=== PATIENT | female | born 1965 | race African-American/Black ===

== ENCOUNTER 2020-03-23 12:03 | Emergency (ER) | payer OTHER, SELFPAY ==
[2020-03-24 13:47] LABS: SARS-CoV-2 MS2 Positive; SARS-CoV-2 N Gene Negative; SARS-CoV-2 S Gene Negative; SARS-CoV-2 by NAA Not Detected (NotDetected); SARS-CoV-2 orf1ab Negative
== END 2020-03-23 12:40 | disposition home or self-care (01) ==
LOC: ERS 12:03
DX: Z20.828 Contact with and (suspected) exposure to other viral communicable diseases (principal); Z79.899 Other long term (current) drug therapy
CPT/HCPCS: 87635; 99283; U0003

== ENCOUNTER 2022-12-27 09:35 | Outpatient (CLI) | payer OTHER | END 2022-12-27 09:36 | disposition home or self-care (01) | LOC: BICRAD 09:35 | PROVIDERS: ATTEND Nurse Practitioner Family | DX: M79.671 Pain in right foot (principal); M25.561 Pain in right knee; M25.562 Pain in left knee; M19.071 Primary osteoarthritis, right ankle and foot; M17.0 Bilateral primary osteoarthritis of knee; M25.461 Effusion, right knee ==

== ENCOUNTER 2023-04-09 06:43 | Emergency (ER) | payer OTHER, SELFPAY ==
[2023-04-09] MEDS ORDERED: HYDROcodone/Acetaminophen 5/325 mg Tablet ONE (07:20)
[2023-04-09] MEDS ORDERED: Dexamethasone 4 mg/ml Vial ONE (07:21)
[2023-04-09] MEDS ORDERED: Dexamethasone 10 MG/ML VIAL ONE (07:25)
[2023-04-09] MEDS ORDERED: traMADol HCl 50 MG TAB ONE (07:35)
== END 2023-04-09 08:11 | disposition home or self-care (01) ==
LOC: ERS 06:43
DX: G56.31 Lesion of radial nerve, right upper limb (principal)
CPT/HCPCS: 96372; 99283; J1100

== ENCOUNTER 2023-07-31 11:49 | Emergency (ER) | payer OTHER ==
[2023-07-31 13:01] LABS: SARS-CoV-2 NAA Rapid Test Not Detected (NotDetected)
== END 2023-07-31 13:47 | disposition home or self-care (01) ==
LOC: ERS 11:49
DX: J06.9 Acute upper respiratory infection, unspecified (principal); E78.00 Pure hypercholesterolemia, unspecified; E03.9 Hypothyroidism, unspecified; F17.210 Nicotine dependence, cigarettes, uncomplicated; Z79.899 Other long term (current) drug therapy; Z20.822 Contact with and (suspected) exposure to COVID-19
CPT/HCPCS: 71046; 93005